=== PATIENT | male | born 1965 ===

== ENCOUNTER 2018-11-06 16:20 | Inpatient (IN) | payer MEDICARE, OTHER ==
[2018-11-06] MEDS ORDERED: MethylPREDNISolone 40 mg Vial IVP STA (17:20)
[2018-11-06] MEDS ORDERED: methylPREDNISolone 1 GM in Sodium Chloride 0.9% 250 ML IV ONE (17:45)
[2018-11-06 18:14] LABS: BASO % 0.5 % (0.0-2.0); EOS # 0.3 K/uL (0.0-0.7); EOS % 4.4 % (0.0-4.0); HEMOGLOBIN 14.4 g/dL (12.0-18.0); LYMPH % 28.1 % (20.0-40.0); MEAN CELL VOLUME 83.4 fL (80.0-94.0); MEAN CORPUSCULAR HEMOGLOBIN 27.6 pg (27.0-31.0); MEAN CORPUSCULAR HGB CONC 33.1 g/dL (33.0-37.0); MEAN PLATELET VOLUME 11.7 fL (7.2-11.7); MONO # 0.4 K/uL (0.0-0.8); NEUT # 4.5 K/uL (1.8-7.0); NRBC % 0.1 % (0.0-2.0); RBC 5.24 Mil/uL (4.40-5.90); RED CELL DISTRIBUTION WIDTH 13.7 % (11.5-14.5); WHITE BLOOD COUNT 7.2 K/uL (4.8-10.8)
[2018-11-06 18:27] LABS: ALB/GLOB RATIO 1.4 (1.0-2.1); ALBUMIN 4.1 g/dL (3.5-5.0); BLOOD UREA NITROGEN 13 mg/dL (9-20); CALCIUM 9.3 mg/dl (8.6-10.4); GFR NON-AFRICAN AMERICAN > 60
[2018-11-06 18:38] LABS: ALT/SGPT 16 U/L (21-72); AST/SGOT 24 U/L (17-59)
--- NOTE | 2018-11-06 18:56 | C.PDOC ---
History Of Present Illness 53 y/o male, with long standing history of MS, comes in to ED complaining of dizziness and weakness x1 week. Patient is wheelchair bound. Patient is a poor historian.baseline leg weakness as per pt, now worsening. Denies any chest pain, SOB, fever, nausea, vomiting, or other complaints. Time Seen by Provider: 11/06/18 17:11 Chief Complaint (Nursing): Dizziness/Lightheaded History Per: Patient History/Exam Limitations: no limitations Onset/Duration Of Symptoms: Days Current Symptoms Are (Timing): Still Present Past Medical History Reviewed: Historical Data, Nursing Documentation, Vital Signs Vital Signs: Last Vital Signs Temp 98.4 F 11/06/18 16:25 Pulse 93 H 11/06/18 16:25 Resp 20 11/06/18 16:25 BP 106/75 11/06/18 16:25 Pulse Ox 99 11/06/18 16:25 Primary Care Provider: Non [facility] Provider, - Medical History PMH: Anxiety, Depression, Multiple Sclerosis Denies: Alzheimer's Disease, Arthritis, Bipolar Disorder, CHF, COPD, Dementia, Fractures, HIV, HTN, Hypercholesterolemia, Hypothyroidism, Migraine, Osteoporosis, Paranoia, Parkinson's Disease, Post Traumatic Stress Disorder, Chronic Kidney Disease, Rheumatoid Arthritis, Schizophrenia, Seizures, TIA Surgical History: Appendectomy, Coronary Stent, Tonsillectomy Denies: CABG, Carotid Endarterectomy, Cholecystectomy - [facility] Procedures GROUP PSYCHOTHERAPY (11/09/15) IMPACTED FECES REMOVAL (10/26/14) INDIVIDUAL PSYCHOTHERAPY, COGNITIVE-BEHAVIORAL (11/09/15) INJECT/INFUSE NEC (01/05/15) INTRODUCTION OF SERUM/TOX/VACCINE INTO MUSCLE, PERC APPROACH (09/29/16) OCCUPATIONAL THERAPY (03/06/14) OTHER SPEECH THERAPY (03/06/14) PHYSICAL THERAPY NEC (03/06/14) RECREATIONAL THERAPY (03/06/14) TRANSFUSE NONAUT WHOLE BLOOD IN PERIPH VEIN, PERC (01/11/16) Family History: States: No Known Family Hx - Social History Hx Alcohol Use: No Hx Substance Use: No - Immunization History Hx Tetanus Toxoid Vaccination: Yes Hx Influenza Vaccination: No Hx Pneumococcal Vaccination: Yes Review Of Systems Except As Marked, All Systems Reviewed And Found Negative. Constitutional: Positive for: Weakness. Negative for: Fever, Chills Cardiovascular: Negative for: Chest Pain Respiratory: Negative for: Shortness of Breath Gastrointestinal: Negative for: Nausea, Vomiting, Abdominal Pain Neurological: Positive for: Dizziness. Negative for: Headache Physical Exam - Physical Exam Appears: Non-toxic, No Acute Distress Skin: Warm, Dry Head: Normacephalic Eye(s): bilateral: Normal Inspection Oral Mucosa: Moist Neck: Supple Cardiovascular: Rhythm Regular, No Murmur Respiratory: Normal Breath Sounds, No Rales, No Rhonchi, No Wheezing Gastrointestinal/Abdominal: Soft, No Tenderness Extremity: Other (bilateral lower leg weakness) Extremity: Bilateral: Normal Color And Temperature, Normal ROM Neurological/Psych: Oriented x3, Normal Speech ED Course And Treatment - Laboratory Results Result Diagrams: 11/06/18 18:08 11/06/18 18:08 Lab Results: Total Bilirubin 0.4 mg/dL (0.2-1.3) 11/06/18 18:08 AST 24 U/L (17-59) 11/06/18 18:08 ALT 16 U/L (21-72) L D 11/06/18 18:08 Alkaline Phosphatase 41 U/L (38-126) 11/06/18 18:08 Total Protein 7.0 g/dL (6.3-8.3) 11/06/18 18:08 Albumin 4.1 g/dL (3.5-5.0) 11/06/18 18:08 Globulin 2.9 gm/dL (2.2-3.9) 11/06/18 18:08 Albumin/Globulin Ratio 1.4 (1.0-2.1) 11/06/18 18:08 O2 Sat by Pulse Oximetry: 99 (RA) Pulse Ox Interpretation: Normal Medical Decision Making Medical Decision Making: suspect ms exacerbation Plan: --EKG --Labs --Solumedrol spoke ot dr gastelum. recommends [address]g [address] dr buchanan. Disposition - Disposition Disposition: HOSPITALIZED Disposition Time: 19:00 Condition: FAIR - Clinical Impression Clinical Impression: Multiple sclerosis, Exacerbation of multiple sclerosis - Scribe Statement The provider has reviewed the documentation as recorded by the Anthonyibe Lavinia Ann Provider Attestation: All medical record entries made by the Scribe were at my direction and personally dictated by me. I have reviewed the chart and agree that the record a ccurately reflects my personal performance of the history, physical exam, medical decision making, and the department course for this patient. I have also personally directed, reviewed, and agree with the discharge instructions and disposition.
[2018-11-06 21:51] VITALS: RESP 20
[2018-11-06] MEDS ORDERED: Baclofen 5 mg Tab PO SCH (22:00)
[2018-11-07] MEDS: MethylPREDNISolone 40 mg Vial IVP SCH ×5 (00:34→23:55)
[2018-11-07] MEDS: Baclofen 5 mg Tab PO SCH ×3 (05:16→21:23)
--- NOTE | 2018-11-07 11:29 | CP.PCM.CON ---
<Joseph Kelly - Last Filed: 11/07/18 13:06> History of Present Illness - History of Present Illness History of Present Illness: PGY-1 Neurology consult note for Dr Madrigal Patient is a 53 year old male with past medical history of MS, diagnosed in his early 20s, as well as depression and anxiety, with complaints of worsening bilateral upper extremity weakness and sensation of "heaviness", as well as stiffness in hands. Patient states he also feels as his head is heavy, as well as a pressure and burning sensation to the right side of the head. Patient has been experiencing these symptoms in the past 3 months, however, noticing marked worsening since two days ago. Patient admits to having increased blurriness in his eyes. Patient states has limited to no strength and functionality in both lower extremities. Patient moves with wheelchair and lives at home by himself, with the assistance of nursing aid in the mornings. Patient has seen Dr Trammell and Dr Richey in the past for management of MS but patient is not currently following up with a neurologist as outpatient. Patient has refused any treatment for MS as patient does not believe in treatment. Patient denies any recent falls or trauma to head or any part of the body. Pmhx/Shx: MS, anxiety, depression, appendectomy, tonsilectomy, tooth extraction surgery All: Morphine Sochx: 1/2 pack a day for +35 years, denies alcohol and drug use, lives by himself in apartment, nurse aid assists pt Fhx: heart disease (mother) Meds: prozac Review of Systems - Review of Systems All systems: reviewed and no additional remarkable complaints except Review of Systems: as stated in HPI Past Patient History - Infectious Disease Hx of Infectious Diseases: None - Tetanus Immunizations Tetanus Immunization: Unknown - Past Medical History & Family History Past Medical History?: Yes - Past Social History Smoking Status: Light Smoker < 10 Cigarettes Daily - CARDIAC Hx Congestive Heart Failure: No Hx Hypercholesterolemia: No Hx Hypertension: No - PULMONARY Hx Chronic Obstructive Pulmonary Disease (COPD): No - NEUROLOGICAL Hx Alzheimer's Disease: No Hx Dementia: No Hx Migraine: No Hx Multiple Sclerosis: Yes Hx Parkinson's Disease: No Hx Seizures: No Hx Transient Ischemic Attacks (TIA): No - HEENT Hx HEENT Problems: No - RENAL Hx Chronic Kidney Disease: No - ENDOCRINE/METABOLIC Hx Hypothyroidism: No - HEMATOLOGICAL/ONCOLOGICAL Hx Human Immunodeficiency Virus (HIV): No - INTEGUMENTARY Hx Dermatological Problems: No - MUSCULOSKELETAL/RHEUMATOLOGICAL Hx Arthritis: No Hx Falls: No Hx Fractures: No Hx Osteoporosis: No Hx Rheumatoid Arthritis: No - GASTROINTESTINAL Hx Gastrointestinal Disorders: No - GENITOURINARY/GYNECOLOGICAL Hx Genitourinary Disorders: No - PSYCHIATRIC Hx Anxiety: Yes Hx Bipolar Disorder: No Hx Depression: Yes Hx Paranoia: No Hx Post Traumatic Stress Disorder: No Hx Schizophrenia: No Hx Substance Use: No - SURGICAL HISTORY Hx Appendectomy: Yes Hx Carotid Endarterectomy: No Hx Cholecystectomy: No Hx Coronary Artery Bypass Graft: No Hx Coronary Stent: Yes Hx Tonsillectomy: Yes - ANESTHESIA Hx Anesthesia: Yes Hx Anesthesia Reactions: No Hx Malignant Hyperthermia: No Meds Allergies/Adverse Reactions: Allergies Allergy/AdvReac Type Severity Reaction Status Date / Time morphine Allergy PAIN Verified 01/25/18 15:41 - Medications Medications: Current Medications Baclofen (Lioresal) 5 mg PO Q8 [facility] Last Admin: 11/07/18 05:16 Dose: 5 mg Clonazepam (Klonopin) 0.5 mg PO [facility] Last Admin: 11/06/18 22:28 Dose: 0.5 mg Clonazepam (Klonopin) 0.5 mg PO DAILY [facility] Last Admin: 11/07/18 09:20 Dose: 0.5 mg Famotidine (Pepcid) 40 mg PO DAILY [facility] Last Admin: 11/07/18 09:20 Dose: 40 mg Gabapentin (Neurontin) 100 mg PO DAILY [facility] Last Admin: 11/07/18 09:20 Dose: 100 mg Methylprednisolone (Solu-Medrol) 40 mg IVP Q6 [facility] Last Admin: 11/07/18 05:16 Dose: 40 mg Zolpidem Tartrate (Ambien) 5 mg PO HS [facility] Last Admin: 11/06/18 22:28 Dose: 5 mg Physical Exam - Constitutional Appears: Non-toxic, No Acute Distress, Cachectic - Head Exam Head Exam: ATRAUMATIC, NORMAL INSPECTION, NORMOCEPHALIC - Eye Exam Eye Exam: EOMI, Nystagmus Pupil Exam: Mydriatic - ENT Exam ENT Exam: Mucous Membranes Moist - Neck Exam Neck exam: Positive for: Full Rom - Respiratory Exam Respiratory Exam: Clear to Auscultation Bilateral, NORMAL BREATHING PATTERN - Cardiovascular Exam Cardiovascular Exam: REGULAR RHYTHM, +S1, +S2 - Neurological Exam Neurological exam: Abnormal Gait, Alert, CN II-XII Intact, Oriented x3 - Expanded Neurological Exam Expanded Patient oriented to: person, place, time Cranial nerves: EOM's Intact: Normal, Facial Palsey w/Forehead Movement: Normal, Facial Palsey w/o Forehead Movement: Normal, Facial Sensation: Normal, Nystagmus: Abnormal Left, Abnormal Right, Tongue Deviation: Normal Cerebellar Function: Finger to Nose: Normal Upper motor neuron: Pronator Drift: Normal Sensory exam: Lower Extremity Light Touch: Normal, Upper Extremity Light Touch: Normal Neuro motor strength exam: Left Upper Extremity: 3, Right Upper Extremity: 5, Left Lower Extremity: 0, Right Lower Extremity: 2/1 DTR: Patellar Left: 1+, Patellar Right: 1+ Coma Scale Eye Opening: SPONTANEOUS Coma Scale Motor Response: OBEYS COMMANDS - Psychiatric Exam Psychiatric exam: Flat Affect, Normal Mood Results - Vital Signs Recent Vital Signs: Last Vital Signs Temp 97.9 F 11/07/18 08:31 Pulse 85 11/07/18 08:31 Resp 20 11/07/18 08:31 BP 152/90 H 11/07/18 08:31 Pulse Ox 97 11/07/18 08:31 - Labs Result Diagrams: 11/06/18 18:08 11/06/18 18:08 Labs: Laboratory Results - last 24 hr 11/06/18 11/06/18 11/06/18 16:43 17:57 18:08 WBC 7.2 RBC 5.24 Hgb 14.4 Hct 43.7 MCV 83.4 MCH 27.6 MCHC 33.1 RDW 13.7 Plt Count 191 MPV 11.7 Neut % (Auto) 62.0 Lymph % (Auto) 28.1 [place] % (Auto) 5.0 Eos % (Auto) 4.4 H Baso % (Auto) 0.5 Neut # (Auto) 4.5 Lymph # (Auto) 2.0 [place] # (Auto) 0.4 Eos # (Auto) 0.3 Baso # (Auto) 0.0 Sodium Potassium Chloride Carbon Dioxide Anion Gap BUN Creatinine Est GFR ( Amer) Est GFR (Non-Af Amer) POC Glucose (mg/dL) 136 H Random Glucose Calcium Total Bilirubin AST ALT Alkaline Phosphatase Total Protein Albumin Globulin Albumin/Globulin Ratio Valproic Acid < 10.0 L 11/06/18 11/07/18 18:08 06:36 WBC RBC Hgb Hct MCV MCH MCHC RDW Plt Count MPV Neut % (Auto) Lymph % (Auto) [place] % (Auto) Eos % (Auto) Baso % (Auto) Neut # (Auto) Lymph # (Auto) [place] # (Auto) Eos # (Auto) Baso # (Auto) Sodium 140 Potassium 3.7 Chloride 104 Carbon Dioxide 25 Anion Gap 15 BUN 13 Creatinine 0.8 Est GFR ( Amer) > 60 Est GFR (Non-Af Amer) > 60 POC Glucose (mg/dL) Random Glucose 109 D Calcium 9.3 Total Bilirubin 0.4 AST 24 ALT 16 L D Alkaline Phosphatase 41 Total Protein 7.0 Albumin 4.1 Globulin 2.9 Albumin/Globulin Ratio 1.4 Valproic Acid < 10.0 L Assessment & Plan - Assessment and Plan (Free Text) Plan: 53 yr old male with pmhx of MS, not currently on treatment presenting with progr essive weakness b/l upper extremity and neck 1. Brain MRI with contrast for evaluation of new plaque formation 2. continue IV steroid tx 3. start MS medication 3. Pt will need to follow up with MS clinic in [facility] and follow up with neurology outpatient Plan d/w Dr Rohan Kelly, PGY-1 - Date & Time Date: 11/07/18 Time: 10:30 <Roshni Madrigal - Last Filed: 11/08/18 11:27> Meds - Medications Medications: Current Medications Baclofen (Lioresal) 5 mg PO Q8 [facility] Last Admin: 11/08/18 06:20 Dose: 5 mg Clonazepam (Klonopin) 0.5 mg PO HS [facility] Last Admin: 11/07/18 21:22 Dose: 0.5 mg Clonazepam (Klonopin) 0.5 mg PO DAILY [facility] Last Admin: 11/08/18 09:17 Dose: 0.5 mg Famotidine (Pepcid) 40 mg PO DAILY [facility] Last Admin: 11/08/18 09:17 Dose: 40 mg Gabapentin (Neurontin) 100 mg PO DAILY [facility] Last Admin: 11/08/18 09:17 Dose: 100 mg Methylprednisolone 1 gm/ (Sodium Chloride) 250 mls @ 250 mls/hr IV Q24H [facility] Stop: 11/09/18 12:59 Zolpidem Tartrate (Ambien) 5 mg PO HS [facility] Last Admin: 11/07/18 21:23 Dose: 5 mg Results - Vital Signs Recent Vital Signs: Last Vital Signs Temp 98.5 F 11/08/18 08:16 Pulse 84 11/08/18 08:16 Resp 20 11/08/18 08:16 BP 124/79 11/08/18 08:16 Pulse Ox 97 11/08/18 08:16 - Labs Result Diagrams: 11/08/18 07:17 11/08/18 07:17 Labs: Laboratory Results - last 24 hr 11/07/18 11/07/18 11/07/18 19:57 19:57 19:57 WBC RBC Hgb Hct MCV MCH MCHC RDW Plt Count MPV Sodium Potassium Chloride Carbon Dioxide Anion Gap BUN Creatinine Est GFR ( Amer) Est GFR (Non-Af Amer) Random Glucose Hemoglobin A1c 5.3 Calcium Iron 47 L TIBC 263 % Saturation 18 L Triglycerides 74 Cholesterol 164 LDL Cholesterol Direct 110 HDL Cholesterol 49 Vitamin B12 659 Folate 6.6 TSH 3rd Generation 11/08/18 11/08/18 07:17 07:17 WBC 17.9 H D RBC 4.86 Hgb 13.2 Hct 41.0 MCV 84.4 MCH 27.2 MCHC 32.3 L RDW 13.7 Plt Count 163 MPV 12.1 H Sodium 145 Potassium 3.9 Chloride 110 H Carbon Dioxide 26 Anion Gap 13 BUN 19 Creatinine 0.9 Est GFR ( Amer) > 60 Est GFR (Non-Af Amer) > 60 Random Glucose 108 Hemoglobin A1c Calcium 9.1 Iron TIBC % Saturation Triglycerides Cholesterol LDL Cholesterol Direct HDL Cholesterol Vitamin B12 Folate TSH 3rd Generation 0.26 L Assessment & Plan - Assessment and Plan (Free Text) Plan: All medical record entries made by the Resident were at my direction and personally dictated by me. I have reviewed the chart and agree that the record accurately reflects my personal performance of the history, physical exam, medical decision making, and the department course for this patient. I have also personally directed, reviewed, and agree with the discharge instructions and disposition Mr. Fitzgerald is a patient with MS, primary progressive, who is here for MS exacerbation. we will start IV solumedrol 1gm daily for 5 days. Neurology .
[2018-11-07 20:21] LABS: IRON 47 ug/dL (49-181)
[2018-11-07 20:30] LABS: % IRON SATURATION 18 (20-55); TOTAL IRON BINDING CAPACITY 263 ug/dL (250-450)
[2018-11-07 21:29] LABS: FOLATE 6.6 ng/mL
[2018-11-08] MEDS: Baclofen 5 mg Tab PO SCH ×3 (06:20→22:02)
[2018-11-08] MEDS: MethylPREDNISolone 40 mg Vial IVP SCH (06:20)
--- NOTE | 2018-11-08 06:42 | HP ---
The patient was seen and examined at the bedside on 11/07/2018. CHIEF COMPLAINT: Dizziness, lightheadedness, and fatigue. HISTORY OF PRESENT ILLNESS: The patient is a 53-year-old male with a longstanding history of MS, who comes to the emergency department complaining of dizziness and weakness for one week. The patient is wheelchair bound. The patient is a poor historian. Baseline leg weakness is, as per the patient, now worsening. Denies chest pain or shortness of breath. No nausea or vomiting. Denies any hematuria or hematochezia. No headache. No dizziness. No chest pain. No palpitation. No fever. No chills. PAST MEDICAL HISTORY: Anxiety, depression, multiple sclerosis, appendectomy, coronary stents, and tonsillectomy. FAMILY HISTORY: Father and mother, noncontributory. HABITS: No smoking. No drugs. No ethanol. ALLERGIES: THE PATIENT IS ALLERGIC TO MORPHINE. REVIEW OF SYSTEMS: The patient was seen and examined at the bedside, looking comfortable. No fever. No chills. No hematuria or hematochezia. No headache or dizziness. No chest pain. No palpitation PHYSICAL EXAMINATION: VITAL SIGNS: Temperature 97.9, pulse 85, respiratory rate 20, blood pressure 150/90, pulse oximetry 97. HEENT: Head; normocephalic and atraumatic. Eyes; PERRLA. Extraocular movements intact. Conjunctivae clear. Nose patent. Mucous membrane moist. NECK: Supple. No carotid bruits, JVD, or thyromegaly. CHEST: Bilaterally symmetrical. HEART: S1 and S2 positive. LUNGS: Clear to auscultation. ABDOMEN: Soft. Bowel sounds present. No organomegaly. EXTREMITIES: No edema. No cyanosis. NEUROLOGIC: The patient is awake and alert. Moving all four extremities. No focal deficits. LABORATORY DATA: White blood cell 7.2, hemoglobin 14.4, hematocrit 43.7, and platelets 191. Sodium 140, potassium 3.7, BUN 13, creatinine 0.8, glucose 109. ASSESSMENT AND PLAN: The patient is a 53-year-old male with a history multiple sclerosis, not getting any treatment for multiple sclerosis, came with progressive weakness of bilateral upper extremities and neck. Brain MRI with contrast, no evaluation of new plaque formation. I started the patient on steroid. Neurologist is on the case. The patient needs to follow up with [facility] and follow up with a neurologist as outpatient. Appreciate Dr. Combs, PGY-1, consult. The patient has a history of anxiety, depression, appendectomy, tonsillectomy, tooth extraction surgery, ALLERGIC WITH MORPHINE, smokes half pack per day for 35 years. Meanwhile, continue with treatment. Repeat labs. We will follow up. Yumiko Lee MD JULIO C
[2018-11-08 07:39] LABS: HEMOGLOBIN 13.2 g/dL (12.0-18.0); MEAN CELL VOLUME 84.4 fL (80.0-94.0); MEAN CORPUSCULAR HEMOGLOBIN 27.2 pg (27.0-31.0); MEAN CORPUSCULAR HGB CONC 32.3 g/dL (33.0-37.0); MEAN PLATELET VOLUME 12.1 fL (7.2-11.7); RBC 4.86 Mil/uL (4.40-5.90); RED CELL DISTRIBUTION WIDTH 13.7 % (11.5-14.5)
[2018-11-08 07:49] LABS: WHITE BLOOD COUNT 17.9 K/uL (4.8-10.8)
[2018-11-08 07:53] LABS: BLOOD UREA NITROGEN 19 mg/dL (9-20); CALCIUM 9.1 mg/dl (8.6-10.4); GFR NON-AFRICAN AMERICAN > 60
--- NOTE | 2018-11-08 10:37 | CP.PCM.PN ---
Subjective - Date & Time of Evaluation Date of Evaluation: 11/08/18 Time of Evaluation: 10:34 - Subjective Subjective: Neuro Follow-Up Note: Mr. Fitzgerald was evaluated this morning at bedside. He is still complaining of BUE weakness. Pt is a paraplegic, has not walked in years but he is able to move his right foot/leg slightly. He denies any new complaints today. Denies h/a, dizziness, visual changes, chest pain, sob, abd pain, new paresthesias, fever/chills. Objective - Vital Signs/Intake and Output Vital Signs (last 24 hours): Temp Pulse Resp BP Pulse Ox 98.5 F 84 20 124/79 97 11/08/18 08:16 11/08/18 08:16 11/08/18 08:16 11/08/18 08:16 11/08/18 08:16 Intake and Output: 11/08/18 11/08/18 06:59 18:59 Intake Total 320 Balance 320 - Medications Medications: Current Medications Baclofen (Lioresal) 5 mg PO Q8 [facility] Last Admin: 11/08/18 06:20 Dose: 5 mg Clonazepam (Klonopin) 0.5 mg PO [facility] Last Admin: 11/07/18 21:22 Dose: 0.5 mg Clonazepam (Klonopin) 0.5 mg PO DAILY [facility] Last Admin: 11/08/18 09:17 Dose: 0.5 mg Famotidine (Pepcid) 40 mg PO DAILY [facility] Last Admin: 11/08/18 09:17 Dose: 40 mg Gabapentin (Neurontin) 100 mg PO DAILY [facility] Last Admin: 11/08/18 09:17 Dose: 100 mg Methylprednisolone (Solu-Medrol) 1 gm IV DAILY [facility] Stop: 11/09/18 10:01 Zolpidem Tartrate (Ambien) 5 mg PO [facility] Last Admin: 11/07/18 21:23 Dose: 5 mg - Labs Labs: 11/08/18 07:17 11/08/18 07:17 - Constitutional Appears: Well, Non-toxic, No Acute Distress - Head Exam Head Exam: ATRAUMATIC, NORMAL INSPECTION, NORMOCEPHALIC - Eye Exam Eye Exam: EOMI, Normal appearance, PERRL Pupil Exam: NORMAL ACCOMODATION, PERRL - ENT Exam ENT Exam: Mucous Membranes Moist - Neck Exam Neck Exam: Full ROM, Normal Inspection - Respiratory Exam Respiratory Exam: NORMAL BREATHING PATTERN - Extremities Exam Extremities Exam: absent: Calf Tenderness, Full ROM, Pedal Edema Additional comments: Able to move BUE Able to slightly move RLE and right foot; pt does not ambulate - Back Exam Back Exam: Full ROM - Neurological Exam Neurological Exam: Alert, Awake, CN II-XII Intact, Oriented x3 Neuro motor strength exam: Left Upper Extremity: 3 (distal 3/5), Right Upper Extremity: 5 (distal 5/5), Left Lower Extremity: 0 (distal 0/5), Right Lower Extremity: 2/1 (distal 4/5) Additional comments: Awake, alert Follows all commands No sensory deficits No tremors or abnormal movements - Psychiatric Exam Psychiatric exam: Normal Affect, Normal Mood - Skin Skin Exam: Normal Color Assessment and Plan (1) Exacerbation of multiple sclerosis Assessment & Plan: -There is no neuro-imaging done during this admission to be reviewed. Brain MRI with contrast ordered yesterday to evaluate for new lesions, but has not been done yet. Last Brain MRI was done in July 2018. -Switch Solumedrol dose from 40 mg to 1 gm IV daily x2 days (for a total of 3 doses). Pt to receive a dose today and one tomorrow morning. -Pt may be d/c'd home tomorrow morning after dose of Solumedrol is given. He is to follow up with the [facility] in [place] as soon as possible with Dr. Jean. He has been to be the MS Center before and usually follows up with them. -Case management for home medical equipment. Pt has a broken hospital bed and broken wheelchair; this is a safety issue that needs to be addressed prior to d/c. -Please reconsult prn and notify neuro of any acute changes in pt's condition p rior to his d/c tomorrow. Thank you for this consultation. Kay Hernandez, MALINI, SENIOR QUALITY CONTROL INSPECTOR d/w Dr. Madrigal Status: Chronic
[2018-11-08] MEDS ORDERED: MethylPREDNISolone 1 gm Vial IV SCH (11:00)
[2018-11-08] MEDS: methylPREDNISolone 1 GM in Sodium Chloride 0.9% 250 ML IV SCH (11:47)
--- NOTE | 2018-11-09 03:27 | CARD ---
APPROVED REPORT Date of service: 11/06/2018 EKG Measurement Heart [id number] <Conclusion> Normal sinus rhythm Normal ECG
[2018-11-09] MEDS: Baclofen 5 mg Tab PO SCH ×2 (05:25→13:22)
[2018-11-09] MEDS: methylPREDNISolone 1 GM in Sodium Chloride 0.9% 250 ML IV SCH (11:51)
--- NOTE | 2018-11-09 14:45 | CP.PCM.PN ---
Subjective - Date & Time of Evaluation Date of Evaluation: 11/09/18 Time of Evaluation: 14:40 - Subjective Subjective: Neldalalito seen today, oob sitting up in chair, denies any comp;laints vss and labs - stable todays dose of solumedrol completed seen by Neuro team , cleared from neurology standpoint after completion of solumedrol dosre today and f/u with MS center at [facility] name [facility] D/w Dr. Renea mortensenared for discharge patien trefused and wants to go home, Pateitn reported he has home care services and he will be able to manage at home detailed discussion done with patient Ref. REHAB , [place] , CM and sw pt still refused to go home states , he has been managing at home before hospital admiss ion . Pt reported he has w/c at home and he can use it prescription given to cm for repair bed at home ( pt reported bed non functional) CM will contact [facility] fo rreair of bed Pateint reported he has all prescription at home and no refills needed Objective - Vital Signs/Intake and Output Vital Signs (last 24 hours): Temp Pulse Resp BP Pulse Ox 97.5 F L 80 20 143/84 99 11/09/18 08:37 11/09/18 12:04 11/09/18 08:37 11/09/18 08:37 11/09/18 08:37 Intake and Output: 11/09/18 11/09/18 06:59 18:59 Intake Total 100 Output Total 625 Balance -525 - Medications Medications: Current Medications Baclofen (Lioresal) 5 mg PO Q8 [facility] Last Admin: 11/09/18 13:22 Dose: 5 mg Clonazepam (Klonopin) 0.5 mg PO HS [facility] Last Admin: 11/08/18 22:02 Dose: 0.5 mg Clonazepam (Klonopin) 0.5 mg PO DAILY [facility] Last Admin: 11/09/18 09:20 Dose: 0.5 mg Famotidine (Pepcid) 40 mg PO DAILY [facility] Last Admin: 11/09/18 09:20 Dose: 40 mg Gabapentin (Neurontin) 100 mg PO DAILY [facility] Last Admin: 11/09/18 09:20 Dose: 100 mg Zolpidem Tartrate (Ambien) 5 mg PO HS [facility] Last Admin: 11/08/18 22:02 Dose: 5 mg - Labs Labs: 11/08/18 07:17 11/08/18 07:17
[2018-11-09 19:10] VITALS: BP 134/80; PULSE 83; TEMP 98.4; O2SAT 100
--- NOTE | 2018-11-10 09:54 | PN ---
DATE: 11/08/2018 This case was discussed with Dr. Lee. She is in agreement with treatment plan. SUBJECTIVE: This is a 53-year-old male came in with dizziness, fatigue, numbness and tingling in hand and lower extremities. The patient has past medical history of multiple sclerosis, CAD with stenting, nicotine dependent, anxiety, chronic anemia, paraplegia, type 2 diabetes, hypertension, left side weakness. Saw the patient today at the bedside, he is alert, oriented. He report numbness and tingling in hands and lower extremities, bilateral hands little bit better. The patient denies shortness of breath, cough, chest pain, hemoptysis, hematuria, hematochezia, fevers or chills. PHYSICAL EXAMINATION VITAL SIGNS: Temperature .97.8, pulse rate 90, blood pressure 121/75, respiratory rate 20, sating 100% on room air. GENERAL: The patient appears in no acute distress. HEENT: Normocephalic, atraumatic. PERRLA. Mucous membrane dry. NECK: Supple. No thyromegaly. RESPIRATORY: Clear to auscultation. No wheeze. No rhonchi. CARDIOVASCULAR: S1, S2. No JVD. ABDOMEN: Soft, nontender. No organomegaly. Positive bowel sounds. SKIN: Intact. EXTREMITIES: No calf tenderness. Moving all extremities. Hemiparesis lower extremities. NEUROLOGIC: The patient alert and oriented x3. No cognitive deficit. MEDICATIONS: Baclofen, Klonopin, Pepcid, Neurontin, the patient continues on methylprednisolone daily, Ambien. LABORATORY DATA: White blood cell 17.9, hemoglobin 13.2, hematocrit 41, platelets 163. Sodium 145, potassium 3.9, BUN 19, creatinine 0.9, hemoglobin 5.3, GFR 60. ASSESSMENT AND PLAN: This is a 53-year-old male with history of multiple sclerosis, hypertension, anxiety, depression, deconditioned. Reviewed brain CT scan and MRI with contrast. The patient continue steroids IV. We will continue Neurontin, baclofen. The patient is given prednisone. Neurology is on the case. The patient will follow up with Neurology outpatient when discharged. We will follow up. ALL ABOVE NOTED , AGREED WITH [employer] SALES MANAGER TREATMENT PLAN , CHART , LABS AND MEDS NOTED . NEW LABS ORDERED , CONT. SAME TREATMENT . WILL F/U Oleg Mccain APN Yumiko Lee MD [facility] # [id number] JULIO C
--- NOTE | 2018-11-10 10:38 | PN ---
DATE: 11/09/2018 This case was discussed with Dr. Lee. She is in agreement with treatment plan. SUBJECTIVE: Patient came in with MS exacerbation, generalized weakness, numbness and tingling to bilateral upper extremities. I saw the patient today. He was sitting in a chair along the bedside, alert and oriented. Patient denies shortness of breath, chest pain, abdominal pain, hematuria, hematochezia, fevers, or chills. He reports numbness and tingling in bilateral upper extremities, getting better. PHYSICAL EXAMINATION: GENERAL: Patient appeared in no acute distress. VITAL SIGNS: Temperature 97.5, pulse rate 69, blood pressure 143/84, respiratory rate 20, and O2 sat is 99% on room air. HEENT: Normocephalic and atraumatic. PERRLA. Mucous membranes moist. NECK: Supple. No thyromegaly. RESPIRATORY: Clear to auscultation. No wheeze. No rhonchi. CARDIOVASCULAR: S1 and S2. No JVD. ABDOMEN: Soft and nondistended. No organomegaly. EXTREMITIES: Patient is moving all extremities. No edema. No cyanosis. SKIN: Intact. NEUROLOGIC: The patient is alert and oriented x3. Following all commands. MEDICATIONS: Baclofen, Klonopin, Pepcid, Neurontin, Ambien. LABORATORY DATA: From 11/08/2018; white blood cells 17.9, hemoglobin 13.2, hematocrit 41, and platelet count 163. Sodium 145, potassium 3.9, BUN 19, creatinine 0.9. GFR was 60. ASSESSMENT AND PLAN: This is a 53-year-old male who came with multiple sclerosis exacerbation, generalized weakness. Patient is followed by Neurology. Case management is on the case. Reviewed MRI of brain. Reviewed medications. We will repeat labs. I did speak with the nurse today. Plan may be to have patient continue rehabilitation at a [facility] facility. We will follow up. ALL ABOVE NOTED , AGREED WITH [employer] SALES CONSULTANT TREATMENT PLAN , CHART , LABS AND MEDS NOTED . NEW LABS ORDERED , CONT. SAME TREATMENT . WILL F/U Oleg Mccain APN Yumiko Lee MD [facility] # [id number] MTDSujatha
--- NOTE | 2018-11-14 06:47 | DS ---
The patient was seen and examined at the bedside on 11/09/2018. CHIEF COMPLAINT: Dizziness, lightheadedness, and fatigue. HISTORY OF PRESENT ILLNESS: Mr. Haile Fitzgerald is a 53-year-old male with longstanding history of MS, came to the emergency department complaining of dizziness, weakness for one week. The patient has been bed bound. The patient is a poor historian. Baseline leg weakness, as per the patient, now worsening. Denies chest pain, shortness of breath. No fevers. No chills. No hematuria or hematochezia. We admitted the patient. Seen by Dr. Roshni Madrigal, neurologist, cleared for discharge. The patient was discharged to home. Follow with primary care physician. PAST MEDICAL HISTORY: Anxiety, depression, multiple sclerosis, appendectomy, coronary artery disease, tonsillectomy. FAMILY HISTORY: Father and mother, noncontributory. HABITS: No smoking. No drugs. No ethanol. ALLERGIES: THE PATIENT ALLERGIC TO MORPHINE. REVIEW OF SYSTEMS: The patient was seen and examined at the bedside on 11/09/2018. For more details, see my progress note for 11/09/2018. The patient is very weak, deconditioned. The plan was to send the patient for physical therapy and subacute rehab. The patient refused so discharged the patient to home. We will follow up with his physician, need rehab. Talked to the family , meanwhile continue present treatment. We will follow up. Yumiko Lee MD MTDD
== END 2018-11-09 19:05 | disposition home or self-care (01) | DRG 60 ==
LOC: C.ER 16:20 → C.9E 18:47 → C.6T 19:44
PROVIDERS: ADMIT Internal Medicine; ATTEND Internal Medicine
DX: G35 Multiple sclerosis (principal); F32.9 Major depressive disorder, single episode, unspecified; F41.9 Anxiety disorder, unspecified; Z95.5 Presence of coronary angioplasty implant and graft; Z99.3 Dependence on wheelchair; G82.22 Paraplegia, incomplete; I25.10 Atherosclerotic heart disease of native coronary artery without angina pectoris; E11.9 Type 2 diabetes mellitus without complications; I10 Essential (primary) hypertension; D64.9 Anemia, unspecified; Z74.01 Bed confinement status; Z88.5 Allergy status to narcotic agent

== ENCOUNTER 2018-11-10 11:20 | Emergency (ER) | payer MEDICARE, OTHER ==
--- NOTE | 2018-11-10 13:14 | C.PDOC ---
History Of Present Illness 53 y/o male, with long standing history of MS and noncompliant with medications, comes in to ED from home complaining he is unable to keep balance at home. Patient was reportedly admitted inpatient here for MS flare, but wanted to go home instead of rehab. He returns today stating he feels like he will fall out of his wheelchair. Patient has no other complaints. Time Seen by Provider: 11/10/18 12:19 Chief Complaint (Nursing): Medical Clearance History Per: Patient History/Exam Limitations: no limitations Onset/Duration Of Symptoms: Days Current Symptoms Are (Timing): Still Present Past Medical History Reviewed: Historical Data, Nursing Documentation, Vital Signs Vital Signs: Last Vital Signs Temp 98 F 11/10/18 11:26 Pulse 74 11/10/18 11:26 Resp 18 11/10/18 11:26 BP 160/86 H 11/10/18 11:26 Pulse Ox 100 11/10/18 11:26 Primary Care Provider: Non [facility] Provider, - Medical History PMH: Anxiety, Depression, Multiple Sclerosis Denies: Alzheimer's Disease, Arthritis, Bipolar Disorder, CHF, COPD, Dementia, Fractures, HIV, HTN, Hypercholesterolemia, Hypothyroidism, Migraine, Osteoporosis, Paranoia, Parkinson's Disease, Post Traumatic Stress Disorder, Chronic Kidney Disease, Rheumatoid Arthritis, Schizophrenia, Seizures, TIA Surgical History: Appendectomy, Coronary Stent, Tonsillectomy Denies: CABG, Carotid Endarterectomy, Cholecystectomy - [facility] Procedures GROUP PSYCHOTHERAPY (11/09/15) IMPACTED FECES REMOVAL (10/26/14) INDIVIDUAL PSYCHOTHERAPY, COGNITIVE-BEHAVIORAL (11/09/15) INJECT/INFUSE NEC (01/05/15) INTRODUCTION OF SERUM/TOX/VACCINE INTO MUSCLE, PERC APPROACH (09/29/16) OCCUPATIONAL THERAPY (03/06/14) OTHER SPEECH THERAPY (03/06/14) PHYSICAL THERAPY NEC (03/06/14) RECREATIONAL THERAPY (03/06/14) TRANSFUSE NONAUT WHOLE BLOOD IN PERIPH VEIN, PERC (01/11/16) Family History: States: No Known Family Hx - Social History Hx Alcohol Use: No Hx Substance Use: No - Immunization History Hx Tetanus Toxoid Vaccination: Yes Hx Influenza Vaccination: No Hx Pneumococcal Vaccination: Yes Review Of Systems Except As Marked, All Systems Reviewed And Found Negative. Constitutional: Negative for: Fever, Chills Gastrointestinal: Negative for: Nausea, Vomiting Musculoskeletal: Negative for: Back Pain Neurological: Positive for: Weakness. Negative for: Numbness Physical Exam - Physical Exam Appears: Non-toxic, No Acute Distress Skin: Warm, Dry Head: Normacephalic Eye(s): bilateral: Normal Inspection Oral Mucosa: Moist Neck: Supple Cardiovascular: Rhythm Regular, No Murmur Respiratory: Normal Breath Sounds, No Rales, No Rhonchi, No Wheezing Extremity: Other (lower leg weakness) Extremity: Bilateral: Atraumatic Neurological/Psych: Oriented x3, Normal Speech, Normal Motor ED Course And Treatment - Laboratory Results Result Diagrams: 11/10/18 13:26 11/10/18 13:26 O2 Sat by Pulse Oximetry: 100 (RA) Pulse Ox Interpretation: Normal Medical Decision Making Medical Decision Making: Plan: --Labs baseline ms. telephonic nurse case manager able to arrange transfer direct to [place] .no new neurologic issues. cleared by dr gastelum. Disposition - Disposition Disposition: HOME/ ROUTINE Disposition Time: 21:00 Condition: STABLE Additional Instructions: return to er with worsening symptoms or concerns. Instructions: Multiple Sclerosis in Adults, Generalized Weakness (DC) Forms: [employer] (Telugu) - Clinical Impression Clinical Impression: Multiple sclerosis - Scribe Statement The provider has reviewed the documentation as recorded by the Scribe Lavinia Ann Provider Attestation: All medical record entries made by the Scribe were at my direction and personally dictated by me. I have reviewed the chart and agree that the record accurately reflects my personal performance of the history, physical exam, medical decision making, and the department course for this patient. I have also personally directed, reviewed, and agree with the discharge instructions and disposition.
[2018-11-10 13:35] LABS: BASO # 0.1 K/uL (0.0-0.2); BASO % 0.6 % (0.0-2.0); LYMPH # 0.9 K/uL (1.0-4.3); LYMPH % 7.7 % (20.0-40.0); MEAN CELL VOLUME 84.7 fL (80.0-94.0); MEAN CORPUSCULAR HEMOGLOBIN 27.4 pg (27.0-31.0); MEAN CORPUSCULAR HGB CONC 32.3 g/dL (33.0-37.0); MEAN PLATELET VOLUME 11.9 fL (7.2-11.7); MONO # 0.8 K/uL (0.0-0.8); MONO % 6.9 % (0.0-10.0); NEUT # 9.9 K/uL (1.8-7.0); NEUT % 84.8 % (50.0-75.0); PLATELET COUNT 148 K/uL (130-400); RBC 5.54 Mil/uL (4.40-5.90); WHITE BLOOD COUNT 11.7 K/uL (4.8-10.8)
[2018-11-10 13:39] LABS: HEMOGLOBIN 15.2 g/dL (12.0-18.0)
[2018-11-10 13:43] LABS: INR 0.9; PARTIAL THROMBOPLASTIN TIME 30.4 SECONDS (21-34); PROTHROMBIN TIME 10.2 SECONDS (9.7-12.2)
[2018-11-10 13:52] LABS: BANDS 4 % (0-2); LYMPHOCYTE 4 % (20-40); MONOCYTE 7 % (0-10); NEUTROPHIL 85 % (50-75); PLATELET ESTIMATE NORMAL (NORMAL); TOTAL CELLS COUNTED 100
[2018-11-10 13:53] LABS: ALB/GLOB RATIO 1.4 (1.0-2.1); ALBUMIN 4.1 g/dL (3.5-5.0); ALT/SGPT 71 U/L (21-72); AST/SGOT 51 U/L (17-59); BLOOD UREA NITROGEN 15 mg/dL (9-20); BURR CELLS SLIGHT; CALCIUM 9.3 mg/dl (8.6-10.4); GFR NON-AFRICAN AMERICAN > 60; LARGE PLATELETS PRESENT
[2018-11-10 21:10] VITALS: BP 130/80; PULSE 80; RESP 14; TEMP 98.9
[2018-11-10 21:24] VITALS: O2SAT 100
--- NOTE | 2018-11-11 01:28 | HP ---
HISTORY OF PRESENT ILLNESS: The patient is a 53-year-old male. The patient was discharged yesterday. The patient came last admission for exacerbation of MS, and the patient was offered rehab. He refused to go to rehab, went home, and mid of the night came back even within 24 hours that he had an another fall. He cannot take care of himself. He wants to go to rehab. I never saw the patient for the second admission. I talked to ER, admitted the patient. Now, I talked to social welfare clerk, Janna. The patient wanted to go to rehab and accepted that we are discharging the patient over there, because I never saw the patient for this admission, I can let it to be complete H and P. Yumiko Lee MD MTDSujatha
== END 2018-11-10 23:19 | disposition home or self-care (01) ==
LOC: C.ER 11:20 → C.9E 13:56 → UNDOADMIN 13:56 → C.3T 15:39 → C.9E 15:39 → C.3T 17:04 → C.9E 17:04 → C.ER 23:19
DX: G35 Multiple sclerosis (principal); Z91.14 Patient's other noncompliance with medication regimen